=== PATIENT | female | born 1985 | race African-American/Black ===

== ENCOUNTER 2016-11-30 18:37 | Emergency (ER) | payer SELFPAY ==
[~2016-11-30 18:37] MED LIST: FIORTAB4 PO; Z.0.NO CURRENT MEDS
[2016-11-30 18:38] VITALS: BP 109/65; PULSE 72; RESP 18; TEMP 98.5; O2SAT 98
--- NOTE | 2016-11-30 18:41 | PD ---
Physical Exam Date Seen by Provider: Nov 30, 2016 Time Seen by Provider: 18:40 Narrative Pt presents with a few days of bilateral mid back pain, worse on the right then the left. Pt thought it might be a UTI and took AZO. Blood in urine when she wipes. No vaginal bleeding or discharge. No other complaints. VSS Data Data Last Documented VS Vital Signs Date Time Temp Pulse Resp B/P Pulse Ox O2 Delivery O2 Flow Rate FiO2 11/30/16 18:38 98.5 72 18 109/65 98 MDM Supervised Visit with LINA: Holly Mendoza Nov 30, 2016 18:41
--- NOTE | 2016-11-30 20:08 | PD ---
HPI Chief Complaint: Flank/Kidney Pain Time Seen by Provider: 20:00 Travel History International Travel<30 days: No Contact w/Intl Traveler<30days: No Traveled to known affect area: No History of Present Illness HPI Patient 31-year-old female presents with right flank pain. Patient states she was thought she was given a urinary tract infection taking Azo. She became alarmed when the pain started becoming in her right back. Patient denies history of kidney stones. She states she did have some blood that she noticed on the toilet paper recently but denies any vaginal bleeding or vaginal discharge. Denies possibility of . Denies any abdominal pain or nausea vomiting. She denies any fevers. PFSH Past Medical History : 1 Miscarriage: 1 Social History Alcohol Use: No Tobacco Use: No Substance Use: No Allergies-Medications (Allergen,Severity, Reaction): Coded Allergies: Darvocet-N 100 (Verified Allergy, Mild, HIVES, 11/30/16) Penicillin (Verified Allergy, Mild, HIVES, 11/30/16) Reported Meds & Prescriptions Reported Meds & Active Scripts Active Ciprofloxacin (Ciprofloxacin HCl) 500 Mg Tab 500 Mg PO BID 7 Days Fioricet (Acetaminophen/Butalbital/Caffeine) Tab 1-2 Tab PO Q6HPRN FOR PAIN Reported No Current Meds (Miscellaneous Medication) Misc Review of Systems Except as stated in HPI: all other systems reviewed are Neg Physical Exam Narrative GENERAL: Well-developed well-nourished in no apparent distress. SKIN: Focused skin assessment warm/dry. HEAD: Atraumatic. Normocephalic. EYES: Pupils equal and round. No scleral icterus. No injection or drainage. ENT: No nasal bleeding or discharge. Mucous membranes pink and moist. NECK: Trachea midline. No JVD. CARDIOVASCULAR: Regular rate and rhythm. No murmur appreciated. RESPIRATORY: No accessory muscle use. Clear to auscultation. Breath sounds equal bilaterally. GASTROINTESTINAL: Abdomen soft, non-tender, nondistended. Hepatic and splenic margins not palpable. Minimal CVA tenderness on the right side. Abdomen otherwise benign. MUSCULOSKELETAL: No obvious deformities. No clubbing. No cyanosis. No edema. NEUROLOGICAL: Awake and alert. No obvious cranial nerve deficits. Motor grossly within normal limits. Normal speech. PSYCHIATRIC: Appropriate mood and affect; insight and judgment normal. Data Data Last Documented VS Vital Signs Date Time Temp Pulse Resp B/P Pulse Ox O2 Delivery O2 Flow Rate FiO2 11/30/16 20:13 87 17 109/56 99 Room Air 11/30/16 18:38 98.5 Orders Urinalysis - C+S If Indicated (11/30/16 18:42) Ed Urine Pregnancytest Poc (11/30/16 20:06) Urine Culture (11/30/16 19:27) Labs Laboratory Tests Test 11/30/16 19:27 Urine Color LIGHT-YELLOW Urine Turbidity HAZY Urine pH 6.5 Urine Specific [place] 1.005 Urine Protein NEG mg/dL Urine Glucose (UA) NEG mg/dL Urine Ketones NEG mg/dL Urine Occult Blood MOD Urine Nitrite NEG Urine Bilirubin NEG Urine Urobilinogen LESS THAN 2.0 MG/DL Urine Leukocyte Esterase LARGE Urine RBC 2 /hpf Urine WBC /hpf Urine WBC Clumps RARE Urine Squamous Epithelial 1 /hpf Cells Urine Bacteria RARE /hpf Urine Hyaline Casts 2 /lpf Microscopic Urinalysis Comment CULTURE INDICATED MDM Medical Decision Making Medical Screen Exam Complete: Yes Emergency Medical Condition: Yes Differential Diagnosis Pyelonephritis, kidney stone is a possibility, urinary tract infection, . Narrative Course Patient is roomed in the emergency department, she is quite pleasant in no apparent distress. A urinalysis shows pyuria with near absence of red blood cells. Patient appears quite comfortable. No fevers. No Sirs criteria. Discussed with her differential diagnoses pyelonephritis versus kidney stone. Negative is comfortable she looks if she happens to have a kidney stone is fairly small and likely pass on its own. Therefore I recommended a trial of antibiotics for probable pyelonephritis. Discussed with her signs and symptoms to return to the emergency Department for consideration of CAT scan. Currently I think that the diagnostic benefits do not outweigh the risks of radiation exposure. This was discussed with the patient and she is agreeable for outpatient trial. Will be prescribed Cipro discussed symptomatic management need for follow-up with a primary care physician and return to ED criteria. Diagnosis Primary Impression: Pyelonephritis Additional Instructions: Take her antibiotics until they are all gone, return to the emergency department with high fevers. Nausea and vomiting. Follow-up with your primary care provider or the [facility]. Med/Other Pt SpecificInfo: Prescription(s) given Scripts Ciprofloxacin 500 Mg [id number] Mg PO BID 7 Days Ref 0 Prov:Vicente Martel MD 11/30/16 Disposition: 01 DISCHARGE HOME Condition: Stable Vicente Martel MD Nov 30, 2016 20:08
[2016-11-30 20:09] LABS: BACTERIA, URINE RARE /hpf; BLOOD, URINE MOD (NEG); COMMENT (UR) CULTURE INDICATED; CULTURE IF INDICATED CULTURE INDICATED; GLUCOSE,URINE NEG (NEG); HYALINE CAST, URINE 2 /lpf (RARE); KETONE, URINE NEG (NEG); NITRITE,URINE NEG (NEG); PH, URINE 6.5 (5.0-8.5); SQUAMOUS EPITHELIAL CELL URINE 1 /hpf (0-5); URINE COLOR LIGHT-YELLOW (YELLW/STRAW)
[2016-11-30 20:13] VITALS: BP 109/56; PULSE 87; RESP 17; O2SAT 99
[2016-11-30] MEDS ORDERED: CIPR500T2 PO (20:36)
== END 2016-11-30 20:53 | disposition home or self-care (01) ==
LOC: NEPD 18:37
DX: N12 Tubulo-interstitial nephritis, not specified as acute or chronic (principal)
CPT/HCPCS: 81001; 84703; 87086; 99284